=== PATIENT | female | born 1985 | race African-American/Black ===

== ENCOUNTER 2017-06-25 03:18 | Emergency (ER) | payer BC, OTHER ==
[~2017-06-25] VITALS: Ht 162.6 cm; Wt 99.8 kg
[~2017-06-25 03:18] MED LIST: IBUPROFEN600 M1 PO
[2017-06-25] MEDS ORDERED: NKM (03:30)
[2017-06-25] MEDS ORDERED: PredniSONE 20mg tab ORAL ONE (04:00)
--- NOTE | 2017-06-25 04:01 | Emergency Room Report ---
History of Present Illness General Chief Complaint: Skin Rash/Abscess Source: Patient Present Illness HPI Patient presents with complaints of redness to the inner part of her right thigh Patient reports that several days ago she noticed a small irritated region She now feels area has enlarged denies any fevers or chills Denies any discharge denies any obvious fall or trauma Doesn't recall any obvious insect bites Allergies: Coded Allergies: CITRIC ACID (Unverified Allergy, Unknown, 06/03/15) Patient History Past Medical History: see triage record Pertinent Family History: none Last Menstrual Period: 06/01/17 Now: No Reviewed Nursing Documentation: PMH: Agreed, PSxH: Agreed Nursing Documentation-PMH Past Medical History: No Stated History Review of Systems All Other Systems: negative except mentioned in HPI Physical Exam Vital Signs Date Time Temp Pulse Resp B/P (MAP) Pulse Ox O2 Delivery O2 Flow Rate FiO2 06/25/17 03:26 98.1 72 17 102/62 98 Room Air Sp02 EP Interpretation: reviewed, normal General Appearance: well appearing, no apparent distress Head: normocephalic, atraumatic Eyes: bilateral eye PERRL, bilateral eye EOMI ENT: normal pharynx, no angioedema Neck: supple Respiratory: lungs clear Cardiovascular #1: regular rate, rhythm Gastrointestinal: non tender, soft Musculoskeletal: normal inspection Neurologic: alert, oriented x3, responsive Skin: other - Approximately 5 x 5 cm area circular in nature mildly as the parents as well just to the medial proximal upper thigh on the right side. No obvious fluctuance, no obvious streaking or flaring, there appears to be possible source from a varicose vein, other source of possible insect bite on the medial aspect , Lymphatic: no adenopathy Medical Decision Making Diagnostic Impression: Primary Impression: Rash and other nonspecific skin eruption Additional Impression: Cellulitis ER Course In the appearance and location patient was provided with initial IM injection of antibiotics There is also a reactive component to this the patient was provided with steroids and Benadryl And patient will have initial conservative outpatient trial Last Vital Signs Date Time Temp Pulse Resp B/P (MAP) Pulse Ox O2 Delivery O2 Flow Rate FiO2 06/25/17 03:26 98.1 72 17 102/62 98 Room Air Status: improved Disposition: HOME, SELF-CARE Condition: Stable Referrals: NOT CHOSEN IPA/MD,REFERRING (PCP) Additional Instructions: Patient is provided with the discharge instructions notified to follow up with primary doctor in the next 2-3 days otherwise return to the er with any worsening symptoms. Please note that this report is being documented using DRAGON technology. This can lead to erroneous entry secondary to incorrect interpretation by the dictating instrument. PAULY EDWARDS D.O. Jun 25, 2017 04:01
[2017-06-25] MEDS ORDERED: BENADRYL25 MG ORAL (04:02)
[2017-06-25] MEDS ORDERED: Lidocaine 1% MPF 10mg/ml 5ml ONE (04:02)
[2017-06-25] MEDS ORDERED: KEFLEX500 MG ORAL (04:02)
[2017-06-25] MEDS ORDERED: PREDNISONE20 MG ORAL (04:02)
[2017-06-25 04:13] VITALS: BP 102/62
[2017-06-25] MEDS ORDERED: Lidocaine 1% MPF 10mg/ml 5ml IM ONE (04:15)
== END 2017-06-25 04:14 | disposition home or self-care (01) ==
LOC: EMR 03:45
DX: R21 Rash and other nonspecific skin eruption (principal); L03.115 Cellulitis of right lower limb; Z88.8 Allergy status to other drugs, medicaments and biological substances
CPT/HCPCS: 96372; 99284; J0696

== ENCOUNTER 2017-07-14 20:24 | Emergency (ER) | payer OTHER ==
[~2017-07-14] VITALS: Ht 162.6 cm; Wt 113.4 kg
[~2017-07-14 20:24] MED LIST changes: +BENADRYL25 MG ORAL; +KEFLEX500 MG ORAL; +NKM; +PREDNISONE20 MG ORAL
--- NOTE | 2017-07-14 21:01 | Emergency Room Report ---
History of Present Illness General Chief Complaint: To Be Triaged Present Illness HPI 31-year-old female presents to the emergency department complaining of localized 6/10 in severity pain, tenderness, swelling and erythema to a small area on the left inner thigh x2 days. Patient states she has a history of infected ingrown hairs in that area. Patient denies itching denies fevers, chills, nausea, vomiting. Denies tender swollen lymphnodes or joint pain. Patient denies trauma or fall.Denies lesions/rashes elsewhere on the body. Denies new medications or body washes or creams. Denies swelling of the lips, tongue , throat or airway. Denies wheezing, or shortness of breath. Denies recent travel, recent illness or ill contacts. denies blisters, oral lesions, or sloughing of the skin. Patient denies . Denies CP, Palpitations, LOC, AMS, dizziness, Changes in Vision, Sensation, paresthesias, or a sudden severe headache. Allergies: Coded Allergies: CITRIC ACID (Unverified Allergy, Unknown, 06/03/15) Patient History Past Medical History: see triage record Past Surgical History: none Pertinent Family History: none Now: No Immunizations: UTD Reviewed Nursing Documentation: PMH: Agreed, PSxH: Agreed Review of Systems All Other Systems: negative except mentioned in HPI Physical Exam Sp02 EP Interpretation: reviewed, normal General Appearance: no apparent distress, alert, GCS 15, non-toxic Head: normocephalic, atraumatic Eyes: bilateral eye normal inspection, bilateral eye PERRL ENT: hearing grossly normal, normal pharynx, no angioedema, normal voice, other - no swelling of the lips or tongue Neck: full range of motion, supple/symm/no masses Respiratory: lungs clear, normal breath sounds Cardiovascular #1: regular rate, rhythm Musculoskeletal: back normal, gait/station normal, normal range of motion, tender - ttp to the medial left thigh, superficially to area of erythema, no fluctuance palpated. Neurologic: alert, oriented x3, responsive, motor strength/tone normal, sensory intact, speech normal Psychiatric: judgement/insight normal, memory normal, mood/affect normal Skin: no rash, warm/dry, well hydrated, other - small mild abscess 0.3cm in diameter with surrounding erythema, no palpable fluctuance. Lymphatic: no adenopathy Medical Decision Making PA Attestation Dr. Jamil is my supervising Physician whom patient management has been discussed with. Diagnostic Impression: Primary Impression: Cellulitis and abscess of left lower extremity ER Course 31-year-old female presents to the emergency department complaining of localized 6/10 in severity pain, tenderness, swelling and erythema to a small area on the left inner thigh x2 days. Patient states she has a history of infected ingrown hairs in that area. Patient denies itching denies fevers, chills, nausea, vomiting. Denies tender swollen lymphnodes or joint pain. Patient denies trauma or fall.Denies lesions/rashes elsewhere on the body. Denies new medications or body washes or creams. Denies swelling of the lips, tongue , throat or airway. Denies wheezing, or shortness of breath. Denies recent travel, recent illness or ill contacts. denies blisters, oral lesions, or sloughing of the skin. Patient denies . Denies CP, Palpitations, LOC, AMS, dizziness, Changes in Vision, Sensation, paresthesias, or a sudden severe headache. Ddx considered but are not limited to cellulitis, abscess, folliculitis, cystic acne, necrotizing fasciitis, insect bite, LGV just to name a few Vital signs: are WNL, pt. is afebrile H&PE are most consistent with small mild abscess 0.3cm in diameter with surrounding erythema, no palpable fluctuance. ORDERS: none required at this time, the diagnosis is clinical ED INTERVENTIONS: d/w pt. outpatient conservative treatment with oral abx and anti-inflammatory. pt. to follow up with pmd in 3-5 days. Given ED return precautions for worsening or new symptoms. DISCHARGE: At this time pt. is stable for d/c to home. Will provide printed patient care instructions, and any necessary prescriptions. Care plan and follow up instructions have been discussed with the patient prior to discharge. Disposition: HOME, SELF-CARE Condition: Stable Scripts Ibuprofen* (MOTRIN*) 600 Mg Tablet 600 MG ORAL THREE TIMES A DAY, #30 TAB 0 Refills Prov: Ines Carmona P.A. 07/14/17 Cephalexin* (KEFLEX*) 500 Mg Capsule 500 MG ORAL EVERY 12 HOURS for 7 Days, #14 CAP 0 Refills Prov: Ines Carmona P.A. 07/14/17 Patient Instructions: Cellulitis, [id number] Additional Instructions: Take medications as directed. Follow up with a Primary Care Provider in 3-5 days, even if your symptoms have resolved. --Please review list of primary care clinics, if you do not already have a primary care provider Return sooner to ED if new symptoms occur, or current symptoms become worse. - Please note that this Emergency Department Report was dictated using B[employer] Bout[employer] transition technology software, occasionally this can lead to erroneous entry secondary to interpretation by the dictation equipment. Ines Carmona Jul 14, 2017 21:01
[2017-07-14] MEDS ORDERED: IBUPROFEN600 MG ORAL (21:07)
[2017-07-14] MEDS ORDERED: CEPHALEXIN500 MG ORAL (21:07)
[2017-07-14 21:19] VITALS: BP 112/80
[2017-07-14 21:21] VITALS: BP 112/80
== END 2017-07-14 22:00 | disposition home or self-care (01) ==
LOC: EMR 21:26
DX: L03.116 Cellulitis of left lower limb (principal); L02.416 Cutaneous abscess of left lower limb; Z91.09 Other allergy status, other than to drugs and biological substances
CPT/HCPCS: 99284

== ENCOUNTER 2018-02-22 21:04 | Emergency (ER) | payer OTHER ==
[~2018-02-22] VITALS: Ht 162.6 cm; Wt 95.3 kg
[~2018-02-22 21:04] MED LIST changes: +CEPHALEXIN500 MG ORAL; +IBUPROFEN600 MG ORAL
[2018-02-22 21:17] VITALS: BP 113/77
[2018-02-22] MEDS ORDERED: Ketorolac 60mg Inj IM ONE (21:30)
[2018-02-22] MEDS ORDERED: HYDROcodone/Acetamin 10/325 tab ORAL ONE (21:30)
[2018-02-22] MEDS ORDERED: ROBAXIN-750750 MG PO (22:42)
[2018-02-22] MEDS ORDERED: IBUPROFEN600 MG ORAL (22:42)
[2018-02-22 23:15] VITALS: BP 119/77
[2018-02-22 23:16] VITALS: BP 119/77
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
--- NOTE | 2018-02-23 11:09 | Diagnostic Imaging Report ---
Indication: Pain Technique: CT lumbar spine was performed utilizing automated exposure control without intravenous contrast material. Axial, sagittal and coronal images were generated. CT dose: Total DLP 805.81 mGycm; CTDI vol 29.92 mGy Comparison: None Findings: There are 5 nonrib-bearing lumbar-type vertebral bodies, assuming 12 paired ribs. There is no abnormal lumbar curvature. Lumbar lordosis is maintained. No evidence of acute fracture. No spondylolisthesis. Vertebral body heights and disc spaces are maintained. No significant bony central canal stenosis or bony foraminal narrowing. Please note that the spinal cord and nerve roots poorly evaluated on CT and MRI can be obtained for better evaluation as clinically indicated. Imaged portions of the visceral abdomen pelvis are grossly unremarkable however exam is limited due to increased image noise, possibly related to patient's body habitus. Abdominal aorta is normal in caliber. IMPRESSION: No evidence of acute fracture or traumatic malalignment. This corresponds with the statrad preliminary report. The CT scanner at [facility] is accredited by the [employer] and the scans are performed using protocols designed to limit radiation exposure to as low as reasonably achievable to attain images of sufficient resolution adequate for diagnostic evaluation.
== END 2018-02-22 23:16 | disposition home or self-care (01) ==
LOC: EMR 21:15
DX: S33.5XXA Sprain of ligaments of lumbar spine, initial encounter (principal); Z91.048 Other nonmedicinal substance allergy status; V49.50XA Passenger injured in collision with unspecified motor vehicles in traffic accident, initial encounter; Y92.410 Unspecified street and highway as the place of occurrence of the external cause
CPT/HCPCS: 72131; 81025; 96372; 99284

== ENCOUNTER 2018-07-01 16:50 | Emergency (ER) | payer OTHER ==
[~2018-07-01] VITALS: Ht 162.6 cm; Wt 72.6 kg
[~2018-07-01 16:50] MED LIST changes: +ROBAXIN-750750 MG PO
[2018-07-01 17:24] VITALS: BP 110/67
[2018-07-01] MEDS ORDERED: CEPHALEXIN500 MG ORAL (17:41)
[2018-07-01] MEDS ORDERED: IBUPROFEN600 MG ORAL (17:41)
--- NOTE | 2018-07-01 17:42 | Emergency Room Report ---
History of Present Illness General Chief Complaint: Skin Rash/Abscess Source: Patient Present Illness HPI 32-year-old female patient presents ER complaining of skin infection past 2 days. Reports history of similar symptoms in the past, previously seen at [facility] ER for similar symptoms, treated and resolved previously. Reports pain and swelling of upper left thigh. Reports tenderness to palpation. Reports has been taking Advil, states took prior to arrival to ER. Denies fever, chest pain , shortness of breath, vomiting. Reports no drainage or bleeding from site of wound. Denies trauma or bug bite. Denies history of diabetes. Allergies: Coded Allergies: CITRIC ACID (Unverified Allergy, Unknown, 06/03/15) Patient History Past Medical History: see triage record Now: No Reviewed Nursing Documentation: PMH: Agreed; PSxH: Agreed Nursing Documentation-PMH Past Medical History: No History, Except For Review of Systems All Other Systems: negative except mentioned in HPI Physical Exam Vital Signs Date Time Temp Pulse Resp B/P (MAP) Pulse Ox O2 Delivery O2 Flow Rate FiO2 07/01/18 17:14 98.2 110 18 110/67 100 Room Air 98.2 Sp02 EP Interpretation: reviewed, normal General Appearance: well appearing, no apparent distress, alert, GCS 15, non- toxic Head: normocephalic, atraumatic Eyes: bilateral eye normal inspection, bilateral eye PERRL ENT: hearing grossly normal, normal pharynx, no angioedema, normal voice, uvula midline, moist mucus membranes Neck: full range of motion Respiratory: lungs clear, normal breath sounds, no rhonchi, no respiratory distress, no accessory muscle use, no wheezing, speaking full sentences Cardiovascular #1: regular rate, rhythm, no edema Musculoskeletal: back normal, digits/nails normal, gait/station normal, normal range of motion, non-tender Psychiatric: mood/affect normal Skin: other - proximal inner left thigh: To 3 cm of erythema with mild edema, no palpable mass or fluctuance, no drainage, warmth to touch, no red streaking, no open wound Medical Decision Making PA Attestation Dr. Toure is my supervising Physician whom patient management has been discussed with. Diagnostic Impression: Primary Impression: Cellulitis ER Course Pt. presents to the ED c/o skin infection of left proximal thigh. Ddx considered but are not limited to rash, cellulitis, abscess, atopic dermatitis, angioedema., allergic reaction, DVT. Vital signs: are WNL, pt. is afebrile ER COURSE: Reviewed previous ER chart. physical exam consistent with cellulitis of upper left medial thigh, no palpable mass induration or fluctuance noted on physical exam, do not believe patient does not require IV abx at this time. No history of diabetes, does not require IV antibiotics at this time. provide patient with Keflex for infection and ibuprofen for pain. Okay for outpatient follow-up, wound check in 2-3 days. ER precautions given. DISCHARGE: -Rx provided for Keflex -Rx provided for ibuprofen At this time pt. is stable for d/c to home. Patient resting comfortably in no acute distress, nontoxic appearing. Will provide printed patient care instructions, and any necessary prescriptions. Patient instructed to complete current course of antibiotics. Care plan and follow up instructions have been discussed with the patient prior to discharge. Patient instructed to follow-up with primary care provider in 3 - 5 days and discuss further referral to director multiple sclerosis center and vascular physician. Patient questions asked and answered. ER precautions given. Patient instructed to return to ER immediately for any new or worsening of symptoms including but not limited to increasing SOB, persistent fever, intractable vomiting, calf pain. - Please note that this Emergency Department Report was dictated using [employer] lending officer technology software, occasionally this can lead to erroneous entry secondary to interpretation by the dictation equipment. Last Vital Signs Date Time Temp Pulse Resp B/P (MAP) Pulse Ox O2 Delivery O2 Flow Rate FiO2 07/01/18 17:24 98.2 18 110/67 100 Room Air 98.2 07/01/18 17:14 110 Disposition: HOME, SELF-CARE Condition: Stable Scripts Ibuprofen* (MOTRIN*) 600 Mg Tablet 600 MG ORAL Q8H PRN for For Pain, #30 TAB 0 Refills Prov: Armin Ngo P.A. 07/01/18 Cephalexin* (KEFLEX*) 500 Mg Capsule 500 MG ORAL EVERY 12 HOURS, #14 CAP 0 Refills Prov: Armin Ngo P.A. 07/01/18 Patient Instructions: Cellulitis, [id number] Additional Instructions: Followup with primary care provider or return to ER in 2- 3 days for wound check , return sooner if symptoms worsen. Take medications as directed. Patient questions asked and answered. ER precautions given, patient instructed to return to ER immediately for any new or worsening of symptoms including but not limited to intractable vomiting, fever, red streaking, bleeding or drainage. Armin Ngo Jul 01, 2018 17:41
[2018-07-01 17:45] VITALS: BP 110/67
== END 2018-07-01 17:45 | disposition home or self-care (01) ==
LOC: EMR 17:38
DX: L03.116 Cellulitis of left lower limb (principal)
CPT/HCPCS: 99283